=== PATIENT | female | born 1960 | race African-American/Black ===

== ENCOUNTER 2017-01-19 12:23 | Emergency (ER) | payer OTHER ==
[~2017-01-19] VITALS: Ht 175.3 cm; Wt 104.3 kg
[~2017-01-19 12:23] MED LIST: ACETAMINOPHEN-1 EAC1 ORAL; AMLODIPINE BESYL5 MG PO; AVONEX; FERROUS SULFAT325 MG ORAL; FERROUS SULFAT325 MG PO; IBUPROFEN600 MG ORAL; KENALOG 0.1% CR15 GM APPLIC; MACROBID 100 M100 MG PO; NAPROSYN500 M1 ORAL; NEX; NKM; PREDNISONE20 MG ORAL; PREDNISONE20 MG PO
[2017-01-19 12:40] VITALS: BP 132/85
[2017-01-19 12:45] VITALS: BP 132/85
[2017-01-19] MEDS ORDERED: KENALOG 0.5% CR15 GM APPLIC (12:48)
--- NOTE | 2017-01-19 13:40 | Emergency Room Report ---
History of Present Illness General Chief Complaint: Skin Rash/Abscess Source: Patient Present Illness HPI The patient is a 56-year-old female presenting with a rash to the right lower leg which began 3 days prior. The patient states that she has been experiencing itching to this location and denies any pain. The patient has used Benadryl and [id number] hydrocortisone lotion which has helped. The patient states she developed a similar rash previously and was successfully treated with prescription lotion which she does not remember. The patient denies using any new products such as soaps, detergents, or clothing. Patient denies ingesting any new foods. Patient denies any known allergies. The pt denies any other symptoms such as N, V, F, chills, CP, SOB, edema, numbness/tingling Allergies: Coded Allergies: NO KNOWN ALLERGIES (Unverified Allergy, Unknown, 10/17/15) Patient History Past Medical History: see triage record Pertinent Family History: none Reviewed Nursing Documentation: PMH: Agreed, PSxH: Agreed Nursing Documentation-PMH Past Medical History: No History, Except For Hx Hypertension: Yes Hx Diabetes: Yes Hx Neurological Problems: Yes - M.S. Hx Multiple Sclerosis: Yes Review of Systems All Other Systems: negative except mentioned in HPI Physical Exam Vital Signs Date Time Temp Pulse Resp B/P Pulse Ox O2 Delivery O2 Flow Rate FiO2 01/19/17 12:34 97.9 77 18 132/85 98 Room Air Sp02 EP Interpretation: reviewed, normal Head: normocephalic, atraumatic Eyes: bilateral eye PERRL, bilateral eye normal inspection ENT: hearing grossly normal, normal pharynx, no angioedema, normal voice Musculoskeletal: digits/nails normal, normal range of motion, no calf tenderness Neurologic: alert, oriented x3, responsive, motor strength/tone normal, sensory intact, speech normal Psychiatric: judgement/insight normal, memory normal, mood/affect normal, no suicidal/homicidal ideation Skin: rash - R lower leg: there is a 8cm macular erythematous rashover the distal tibia Lymphatic: no adenopathy Medical Decision Making PA Attestation Dr. Garcia is my supervising physician. Patient management was discussed with my supervising physician Diagnostic Impression: Primary Impression: Dermatitis ER Course The patient is a 56-year-old female presenting with a rash to the right lower leg which began 3 days prior. Ddx considered include but not limited to insect bite, contact dermatitis, eczema, cellulitis PE: vitals WNL. NAD R lower leg: there is a 8cm macular erythematous rash over the distal tibia. Non tender. No edema. Skin intact. SILT. Not hot to touch. The patient will be treated for dermatitis with a prescription for triamcinolone and needs to followup with PMD. ER precautions are given Last Vital Signs Date Time Temp Pulse Resp B/P Pulse Ox O2 Delivery O2 Flow Rate FiO2 01/19/17 12:45 97.9 18 132/85 98 Room Air 01/19/17 12:34 77 Status: improved Disposition: HOME, SELF-CARE Condition: Improved Scripts Triamcinolone Acet (Triamcinolone Acetonide) 15 Gm Cream..g. 15 GM APPLIC TID, #15 GM Prov: MARBELLA HERRON 01/19/17 Referrals: [facility],REFERRING (PCP) Patient Instructions: Rash Additional Instructions: I discussed my findings with the patient. All questions and concerns have been answered. Treatment and medication compliance have been addressed. I advised the patient that they need to follow up with PMD in 3-5 days. Return to ED if symptoms worsen, new symptoms arise, or if needed for any reason. Patient verbalized understanding of discharge instructions. MARBELLA HERRON Jan 19, 2017 13:40
== END 2017-01-19 13:06 | disposition home or self-care (01) ==
LOC: EMR 12:35
DX: L30.9 Dermatitis, unspecified (principal); I10 Essential (primary) hypertension; E11.9 Type 2 diabetes mellitus without complications; G35 Multiple sclerosis
CPT/HCPCS: 99283

== ENCOUNTER 2017-08-30 15:35 | Emergency (ER) | payer OTHER ==
[~2017-08-30] VITALS: Ht 162.6 cm; Wt 86.2 kg
[~2017-08-30 15:35] MED LIST changes: +KENALOG 0.5% CR15 GM APPLIC
--- NOTE | 2017-08-30 16:05 | Emergency Room Report ---
History of Present Illness General Chief Complaint: Back Pain-No Injury Present Illness HPI 56-year-old female presents to the emergency department complaining of 6/10 in severity low back pain in addition to bilateral leg pain and progressive weakness x1 month. Patient states low back pain times one day. Patient states that she was previously prescribed gabapentin for her pain and that recent neurologist appointment she was given a prescription for Avonex however she was unable to fill her medication because she lost her prescription. Patient is requesting refill of her medications in addition to her newest medication. Patient denies fevers, chills, trauma, fall. Patient denies blurry vision, eye pain, or changes in vision. Patient states that she has seen an wet process miller head recently. PT. reports that she is ambulatory however unsteady and often uses a walker at home, pt. states her walker is broken and would like a replacement. Denies numbness tingling or loss of sensation or gross motor movements of the extremities, incontinence of bowel or bladder. Denies CP, Palpitations, LOC, AMS, dizziness, Changes in Vision, Sensation, paresthesias, or a sudden severe headache. Allergies: Coded Allergies: NO KNOWN ALLERGIES (Unverified Allergy, Unknown, 10/17/15) Patient History Past Medical History: see triage record Past Surgical History: none Pertinent Family History: none Now: No Reviewed Nursing Documentation: PMH: Agreed, PSxH: Agreed Nursing Documentation-PMH Hx Hypertension: Yes Hx Diabetes: Yes Hx Multiple Sclerosis: Yes Review of Systems All Other Systems: negative except mentioned in HPI Physical Exam Vital Signs Date Time Temp Pulse Resp B/P (MAP) Pulse Ox O2 Delivery O2 Flow Rate FiO2 08/30/17 15:31 97.9 72 16 136/73 98 Room Air Sp02 EP Interpretation: reviewed, normal General Appearance: no apparent distress, alert, GCS 15, non-toxic, Chronically Ill Head: normocephalic, atraumatic Eyes: bilateral eye normal inspection, bilateral eye PERRL, bilateral eye other - obviosu strabismus of the left eye, EOMI ENT: hearing grossly normal, normal pharynx, no angioedema, normal voice Neck: full range of motion, no meningismus, no bony tend, supple/symm/no masses Respiratory: lungs clear, normal breath sounds, speaking full sentences Cardiovascular #1: regular rate, rhythm, normal capillary refill Cardiovascular #2: 2+ dorsalis pedis (R), 2+ dorsalis pedis (L) Gastrointestinal: non tender, soft, no guarding Musculoskeletal: back normal, gait/station normal - unbalanced gait, normal range of motion, non-tender Neurologic: alert, oriented x3, responsive, motor strength/tone normal, sensory intact, speech normal, no pronator Skin: normal color, no rash, warm/dry, well hydrated Medical Decision Making PA Attestation Dr. Montalvo is my supervising Physician whom patient management has been discussed with. Diagnostic Impression: Primary Impression: Medication refill Additional Impression: History of multiple sclerosis ER Course 56-year-old female presents to the emergency department complaining of 6/10 in severity low back pain in addition to bilateral-lateral thigh/leg pain and progressive weakness x1 month. Patient states low back pain times one day. Patient states that she was previously prescribed gabapentin for her pain and that recent neurologist appointment she was given a prescription for Avonex however she was unable to fill her medication because she lost her prescription. Patient is requesting refill of her medications in addition to her newest medication. Patient denies fevers, chills, trauma, fall. Patient denies blurry vision, eye pain, or changes in vision. Patient states that she has seen an wet process miller head recently. PT. reports that she is ambulatory however unsteady and often uses a walker at home, pt. states her walker is broken and would like a replacement. Denies numbness tingling or loss of sensation or gross motor movements of the extremities, incontinence of bowel or bladder. Denies CP, Palpitations, LOC, AMS, dizziness, Changes in Vision, Sensation, paresthesias, or a sudden severe headache. Ddx considered but are not limited to: drug seeking, OD, MS relapse, medication non-compliance just to name a few. Vital signs: are WNL, pt. is afebrile H&PE are most consistent with need for medication refill, Hx of MS Relapsing- Remitting ORDERS: none required at this time, the diagnosis is clinical ED INTERVENTIONS: -Prednisone PO -Gabapentin PO Discussed with the patient that for a the knots that is his specialty medication that requires close monitoring of her LFTs and that she needs to consult Neurology specialist to have refill of this medication. Also d/w pt. that this medication requires titration initiation, and that this needs to be managed by her Neurologist. Patient is given ED return precautions for worsening or new symptoms. Patient is stable for close outpatient followup with her neurologist. DISCHARGE: At this time pt. is stable for d/c to home. Will provide printed patient care instructions, and any necessary prescriptions. Care plan and follow up instructions have been discussed with the patient prior to discharge. Last Vital Signs Date Time Temp Pulse Resp B/P (MAP) Pulse Ox O2 Delivery O2 Flow Rate FiO2 08/30/17 15:31 97.9 72 16 136/73 98 Room Air Disposition: HOME, SELF-CARE Condition: Stable Scripts Gabapentin* (NEURONTIN*) 100 Mg Capsule 200 MG ORAL THREE TIMES A DAY for 5 Days, #30 CAP Prov: Adelina Valderrama 08/30/17 Prednisone* (PREDNISONE*) 50 Mg Tablet 50 MG ORAL DAILY for 5 Days, #5 TAB 0 Refills Prov: Adelina Valderrama 08/30/17 Patient Instructions: Medicine Refill at the Emergency Department Additional Instructions: Take medications as directed. Follow up with your Neurologist in 3 days, even if your symptoms have resolved. Return sooner to ED if new symptoms occur, or current symptoms become worse. Do not drink alcohol, drive, or operate heavy machinery while taking Gabapentin as this may cause drowsiness. - Please note that this Emergency Department Report was dictated using [employer] liaison technology software, occasionally this can lead to erroneous entry secondary to interpretation by the dictation equipment. Adelina Valderrama Aug 30, 2017 16:05
[2017-08-30] MEDS ORDERED: NEURONTIN100 MG ORAL (16:31)
[2017-08-30] MEDS ORDERED: PREDNISONE50 MG ORAL (16:31)
[2017-08-30 16:47] VITALS: BP 139/81
== END 2017-08-30 17:14 | disposition home or self-care (01) ==
LOC: EDBD 15:35 → EMR 16:08
DX: G35 Multiple sclerosis (principal); Z76.0 Encounter for issue of repeat prescription; I10 Essential (primary) hypertension; E11.9 Type 2 diabetes mellitus without complications
CPT/HCPCS: 99284

== ENCOUNTER 2018-02-20 19:36 | Emergency (ER) | payer OTHER ==
[~2018-02-20] VITALS: Ht 170.2 cm; Wt 95.3 kg
[~2018-02-20 19:36] MED LIST changes: +NEURONTIN100 MG ORAL; +PREDNISONE50 MG ORAL
[2018-02-20 20:00] VITALS: BP 156/92
[2018-02-20] MEDS ORDERED: Dexamethasone 4mg/ml vial IVP ONE (20:15)
[2018-02-20] MEDS ORDERED: cefTRIAXone 1 GM in NS 55 ML IVPB ONE (20:30)
[2018-02-20 20:50] LABS: EOSINOPHILS % (AUTO) 0.6 % (0.0-3.0); HEMATOCRIT 41.1 % (37.0-47.0); HEMOGLOBIN 13.8 G/DL (12.0-16.0); LYMPHOCYTES % (AUTO) 16.1 % (20.0-45.0); MEAN CORPUSCULAR VOLUME 88 FL (80-99); MONOCYTES % (AUTO) 4.9 % (1.0-10.0); NEUTROPHILS % (AUTO) 77.5 % (45.0-75.0); PLATELET COUNT 171 K/UL (150-450); RED BLOOD COUNT 4.67 M/UL (4.20-5.40); RED CELL DISTRIBUTION WIDTH 11.4 % (11.6-14.8); WHITE BLOOD COUNT 11.7 K/UL (4.8-10.8)
[2018-02-20 21:04] LABS: APPEARANCE,URINE SLIGHTLY CLOUDY; BILIRUBIN, URINE NEGATIVE (NEGATIVE); COLOR,URINE PALE YELLOW; GLUCOSE, URINE (UA) NEGATIVE (NEGATIVE); KETONES,URINE NEGATIVE (NEGATIVE); LEUKOCYTE ESTERASE ,URINE 2+ (NEGATIVE); NITRITE,URINE POSITIVE (NEGATIVE); PH,URINE 6 (4.5-8.0); PROTEIN,URINE NEGATIVE (NEGATIVE); UROBILINOGEN,URINE NORMAL MG/DL (0.0-1.0)
[2018-02-20 21:06] LABS: ANION GAP 9 mmol/L (5-15); BLOOD UREA NITROGEN 12 mg/dL (7-18); CALCIUM 9.2 MG/DL (8.5-10.1); CARBON DIOXIDE 29 MMOL/L (21-32); CHLORIDE 102 MMOL/L (98-107); CREATININE 0.9 MG/DL (0.55-1.30); POTASSIUM 3.7 MMOL/L (3.5-5.1); SODIUM 140 MMOL/L (136-145)
[2018-02-20 21:17] LABS: ALANINE AMINOTRANSFERASE 14 U/L (12-78); ALBUMIN/GLOBULIN RATIO 0.9 (1.0-2.7); ALKALINE PHOSPHATASE 121 U/L (46-116); ASPARTATE AMINO TRANSFERASE 18 U/L (15-37); BILIRUBIN,TOTAL 1.2 MG/DL (0.2-1.0)
[2018-02-20 21:20] LABS: BILIRUBIN,DIRECT 0.2 MG/DL (0.0-0.3)
--- NOTE | 2018-02-20 21:42 | Emergency Room Report ---
History of Present Illness General Chief Complaint: Generalized Weakness Source: Patient Present Illness HPI Patient is a 57-year-old female who presented after increased left-sided weakness. Patient prior history of multiple sclerosis. Patient reports having increased sore throat. Patient stated that she had been having increased difficulty moving her left lower extremity. The patient had not been on any disease modifying agents. Patient had been having chronic diplopia. Allergies: Coded Allergies: NO KNOWN ALLERGIES (Unverified Allergy, Unknown, 10/17/15) CITRUS AND DERIVATIVES (Verified Adverse Reaction, Unknown, 02/20/18) acid reflux and mucus increased production Patient History Past Medical History: see triage record Last Menstrual Period: n/a Reviewed Nursing Documentation: PMH: Agreed; PSxH: Agreed Nursing Documentation-PMH Hx Hypertension: Yes Hx Diabetes: Yes Hx Multiple Sclerosis: Yes Review of Systems All Other Systems: negative except mentioned in HPI Physical Exam Vital Signs Date Time Temp Pulse Resp B/P (MAP) Pulse Ox O2 Delivery O2 Flow Rate FiO2 02/20/18 19:39 98.4 82 16 156/92 100 Room Air 98.4 Sp02 EP Interpretation: reviewed, normal General Appearance: normal inspection, well appearing, no apparent distress, alert, obese, Chronically Ill Head: atraumatic Eyes: bilateral eye other - disconjugate gaze ENT: normal ENT inspection, hearing grossly normal, normal voice, pharyngeal erythema Neck: normal inspection, supple, no bony tend, limited range of motion Respiratory: normal inspection, lungs clear, normal breath sounds, no respiratory distress, no retraction, no wheezing Cardiovascular #1: regular rate, rhythm, no edema Gastrointestinal: normal inspection, normal bowel sounds, non tender, soft, no guarding, no hernia Genitourinary: no CVA tenderness Musculoskeletal: normal inspection, back normal, normal range of motion Neurologic: normal inspection, alert, oriented x3, responsive, speech normal, motor weakness - left side hand and leg Psychiatric: normal inspection, judgement/insight normal, mood/affect normal Skin: normal inspection, normal color, no rash Medical Decision Making Diagnostic Impression: Primary Impression: Multiple sclerosis exacerbation Additional Impression: UTI (urinary tract infection) ER Course Patient presented for weakness. Differential diagnoses included was not limited to multiple sclerosis exacerbation, CVA, electrolyte abnormality, urinary infection among others.Because of complexity of patient's case laboratory testing and imaging studies were ordered. Laboratory testing show evidence of urinary infection. The patient was noted to have normal white blood count. Patient was given IV steroids. Patient started on IV antibiotics for urinary infection.The due to patient's new weakness patient will be admitted for further evaluation and treatment. Labs Test 02/20/18 20:30 White Blood Count 11.7 K/UL (4.8-10.8) Red Blood Count 4.67 M/UL (4.20-5.40) Hemoglobin 13.8 G/DL (12.0-16.0) Hematocrit 41.1 % (37.0-47.0) Mean Corpuscular Volume 88 FL (80-99) Mean Corpuscular Hemoglobin 29.5 PG (27.0-31.0) Mean Corpuscular Hemoglobin Concent 33.5 G/DL (32.0-36.0) Red Cell Distribution Width 11.4 % (11.6-14.8) Platelet Count 171 K/UL (150-450) Mean Platelet Volume 7.6 FL (6.5-10.1) Neutrophils (%) (Auto) 77.5 % (45.0-75.0) Lymphocytes (%) (Auto) 16.1 % (20.0-45.0) Monocytes (%) (Auto) 4.9 % (1.0-10.0) Eosinophils (%) (Auto) 0.6 % (0.0-3.0) Basophils (%) (Auto) 1.0 % (0.0-2.0) Urine Color Pale yellow Urine Appearance Slightly cloudy Urine pH 6 (4.5-8.0) Urine Specific [place] 1.015 (1.005-1.035) Urine Protein Negative (NEGATIVE) Urine Glucose (UA) Negative (NEGATIVE) Urine Ketones Negative (NEGATIVE) Urine Occult Blood 4+ (NEGATIVE) Urine Nitrite Positive (NEGATIVE) Urine Bilirubin Negative (NEGATIVE) Urine Urobilinogen Normal MG/DL (0.0-1.0) Urine Leukocyte Esterase 2+ (NEGATIVE) Urine RBC 2-4 /HPF (0 - 2) Urine WBC 5-10 /HPF (0 - 2) Urine Squamous Epithelial Cells Few /LPF (NONE/OCC) Urine Bacteria Many /HPF (NONE) Sodium Level 140 MMOL/L (136-145) Potassium Level 3.7 MMOL/L (3.5-5.1) Chloride Level 102 MMOL/L (98-107) Carbon Dioxide Level 29 MMOL/L (21-32) Anion Gap 9 mmol/L (5-15) Blood Urea Nitrogen 12 mg/dL (7-18) Creatinine 0.9 MG/DL (0.55-1.30) Estimat Glomerular Filtration Rate > 60 mL/min (>60) Glucose Level 95 MG/DL (74-106) Calcium Level 9.2 MG/DL (8.5-10.1) Total Bilirubin 1.2 MG/DL (0.2-1.0) Direct Bilirubin 0.2 MG/DL (0.0-0.3) Aspartate Amino Transf (AST/SGOT) 18 U/L (15-37) Alanine Aminotransferase (ALT/SGPT) 14 U/L (12-78) Alkaline Phosphatase 121 U/L (46-116) Total Protein 8.4 G/DL (6.4-8.2) Albumin 4.0 G/DL (3.4-5.0) Globulin 4.4 g/dL Albumin/Globulin Ratio 0.9 (1.0-2.7) EKG Diagnostic Results Rate: normal - 75 Rhythm: NSR ST Segments: no acute changes Rhythm Strip Diag. Results EP Interpretation: yes Rhythm: NSR, no PVC's, no ectopy Last Vital Signs Date Time Temp Pulse Resp B/P (MAP) Pulse Ox O2 Delivery O2 Flow Rate FiO2 02/20/18 19:39 98.4 82 16 156/92 100 Room Air 98.4 Status: unchanged Disposition: ADMITTED INPATIENT Condition: Serious Referrals: NON PHYSICIAN (PCP) Christopher Spain MD February 20, 2018 21:42
[2018-02-20 22:00] VITALS: BP 150/90
[2018-02-20] MEDS ORDERED: ALLEGRA-D 12 H1 EACH PO (22:08)
[2018-02-20] MEDS ORDERED: FLONASE ALLERG9.9 ML NS (22:08)
[2018-02-20 23:49] VITALS: BP 152/83
[2018-02-21 00:39] VITALS: BP 152/83
--- NOTE | 2018-02-25 15:01 | Cardiology Report ---
APPROVED REPORT EKG Measurement Heart [id number] Normal sinus rhythm Normal ECG
== END 2018-02-21 00:45 | disposition other institution (70) ==
LOC: EMR 20:58
DX: G35 Multiple sclerosis (principal); N39.0 Urinary tract infection, site not specified; E11.9 Type 2 diabetes mellitus without complications
CPT/HCPCS: 36415; 80053; 81001; 82248; 82962; 85025; 87086; 87181; 93005; 99285; J0696; J1100

== ENCOUNTER 2018-07-04 16:36 | Emergency (ER) | payer OTHER ==
[~2018-07-04] VITALS: Ht 175.3 cm; Wt 97.5 kg
[~2018-07-04 16:36] MED LIST changes: +ALLEGRA-D 12 H1 EACH PO; +FLONASE ALLERG9.9 ML NS
[2018-07-04 16:55] VITALS: BP 132/83
--- NOTE | 2018-07-04 17:11 | Emergency Room Report ---
History of Present Illness General Chief Complaint: General Complaint Source: Patient Present Illness HPI 57-year-old female presents to the emergency department with 2 different complaints. Patient reports increased lacrimation and scratching sensation in the right eye along with rhinorrhea. Patient also is reporting body aches/ cramping generalized that she rates a 7 out of 10 in severity. Patient reports history of MS. Denies: Pain, Discharge other than tearing, Redness, Loss of vision, Floaters, Flashing lights, Diplopia/blurry vision. Denies headache. Allergies: Coded Allergies: NO KNOWN ALLERGIES (Unverified Allergy, Unknown, 10/17/15) CITRUS AND DERIVATIVES (Verified Adverse Reaction, Unknown, 02/20/18) acid reflux and mucus increased production Patient History Past Medical History: see triage record Past Surgical History: none Pertinent Family History: none Last Menstrual Period: na Reviewed Nursing Documentation: PMH: Agreed; PSxH: Agreed Nursing Documentation-PMH Past Medical History: No History, Except For Hx Hypertension: Yes Hx Diabetes: Yes Hx Multiple Sclerosis: Yes Review of Systems All Other Systems: negative except mentioned in HPI Physical Exam Vital Signs Date Time Temp Pulse Resp B/P (MAP) Pulse Ox O2 Delivery O2 Flow Rate FiO2 07/04/18 16:39 97.9 67 18 149/91 98 Room Air 97.9 Sp02 EP Interpretation: reviewed, normal General Appearance: no apparent distress, alert, GCS 15, non-toxic Head: normocephalic, atraumatic Eyes: right eye fluoroscene uptake, right eye other - increased lacrimation , no purulent d/c, no visualized fb on lid-flip, ; bilateral eye normal inspection , bilateral eye PERRL ENT: hearing grossly normal, normal voice Neck: full range of motion Respiratory: chest non-tender, lungs clear, normal breath sounds, speaking full sentences Cardiovascular #1: regular rate, rhythm Gastrointestinal: non tender, soft Rectal: deferred Genitourinary: normal inspection Musculoskeletal: back normal, gait/station normal, normal range of motion, non- tender Neurologic: alert, oriented x3, responsive, motor strength/tone normal, sensory intact, normal gait - with walker assistance, speech normal, grossly normal Psychiatric: judgement/insight normal Skin: normal color, no rash, warm/dry, well hydrated Medical Decision Making PA Attestation Dr. chávez is my supervising Physician whom patient management has been discussed with. Diagnostic Impression: Primary Impression: Corneal abrasion, right Qualified Codes: S05.01XA - Injury of conjunctiva and corneal abrasion without foreign body, right eye, initial encounter Additional Impression: History of multiple sclerosis ER Course 57-year-old female presents to the emergency department with 2 different complaints. Patient reports increased lacrimation and scratching sensation in the right eye along with rhinorrhea. Patient also is reporting body aches/ cramping generalized that she rates a 7 out of 10 in severity. Patient reports history of MS. Denies: Pain, Discharge other than tearing, Redness, Loss of vision, Floaters, Flashing lights, Diplopia/blurry vision. Denies headache. Ddx considered but are not limited to Eye fb, corneal abrasion, atypical KOTHARI, rhinitis, MS flare just to name a few. Vital signs: are WNL, pt. is afebrile H&PE are most consistent with right eye corneal abrasion, and MS flare- mild. - Fluorescein uptake and positive relief with tetracaine drops. ORDERS: none required at this time, the diagnosis is clinical ED INTERVENTIONS: -IV NS 1000cc -Prednisone 60mg PO - D/w pt. treatment plan of antibiotic eye drops, opth-follow up, and also short course of steroids and muscle relaxers for MS flare. pt. given ED return precautions for worsening or new symptoms. DISCHARGE: At this time pt. is stable for d/c to home. Will provide printed patient care instructions, and any necessary prescriptions. Care plan and follow up instructions have been discussed with the patient prior to discharge. Last Vital Signs Date Time Temp Pulse Resp B/P (MAP) Pulse Ox O2 Delivery O2 Flow Rate FiO2 07/04/18 16:39 97.9 67 18 149/91 98 Room Air 97.9 Disposition: HOME, SELF-CARE Condition: Stable Scripts Methocarbamol* (ROBAXIN-750*) 750 Mg Tablet 750 MG PO TID, #21 TAB 0 Refills Prov: Adelina Valderrama 07/04/18 Prednisone* (PREDNISONE*) 20 Mg Tablet 40 MG ORAL DAILY for 5 Days, #10 TAB Prov: Adelina Valderrama 07/04/18 Ofloxacin (OCUFLOX) 5 Ml Drops 2 DRP OP BID for 5 Days, #5 ML Prov: Adelina Valderrama 07/04/18 Patient Instructions: Corneal Abrasion, [id number] Additional Instructions: Take medications as directed. Follow up with [facility] in 2-3 days. Follow up with a Primary Care Provider in 3-5 days, even if your symptoms have resolved. --Please review list of primary care clinics, if you do not already have a primary care provider Return sooner to ED if new symptoms occur, or current symptoms become worse. Do not drink alcohol, drive, or operate heavy machinery while taking Robaxin ( Muscle Relaxers) as this may cause drowsiness. - Please note that this Emergency Department Report was dictated using [employer] executive communications technology software, occasionally this can lead to erroneous entry secondary to interpretation by the dictation equipment. Adelina Valderrama Jul 04, 2018 17:11
[2018-07-04] MEDS ORDERED: Tetracaine 0.5% Opth 4ml Soln RIGHT EYE ONE (17:15)
[2018-07-04] MEDS ORDERED: Fluorescein Strips RIGHT EYE ONE (17:15)
[2018-07-04] MEDS ORDERED: PREDNISONE20 MG ORAL (17:43)
[2018-07-04] MEDS ORDERED: ROBAXIN-750750 MG PO (17:43)
[2018-07-04] MEDS ORDERED: OCUFLOX5 ML OP (17:43)
[2018-07-04 18:50] VITALS: BP 155/86
== END 2018-07-04 18:58 | disposition home or self-care (01) ==
LOC: EMR 17:00
DX: S05.01XA Injury of conjunctiva and corneal abrasion without foreign body, right eye, initial encounter (principal); I10 Essential (primary) hypertension; G35 Multiple sclerosis; X58.XXXA Exposure to other specified factors, initial encounter; Y93.9 Activity, unspecified; Y92.9 Unspecified place or not applicable; Y99.9 Unspecified external cause status
CPT/HCPCS: 96360; 99284; J7512

== ENCOUNTER 2019-06-02 17:32 | Emergency (ER) | payer OTHER ==
[~2019-06-02] VITALS: Ht 175.3 cm; Wt 97.5 kg
[~2019-06-02 17:32] MED LIST changes: +OCUFLOX5 ML OP; +ROBAXIN-750750 MG PO
[2019-06-02 17:38] VITALS: BP 151/80
[2019-06-02 18:50] LABS: BASOPHILS % (AUTO) 1.6 % (0.0-2.0); EOSINOPHILS % (AUTO) 2.8 % (0.0-3.0); HEMATOCRIT 36.5 % (37.0-47.0); HEMOGLOBIN 12.6 G/DL (12.0-16.0); LYMPHOCYTES % (AUTO) 31.7 % (20.0-45.0); MEAN CORPUSCULAR VOLUME 87 FL (80-99); MONOCYTES % (AUTO) 8.7 % (1.0-10.0); NEUTROPHILS % (AUTO) 55.2 % (45.0-75.0); PLATELET COUNT 197 K/UL (150-450); RED BLOOD COUNT 4.18 M/UL (4.20-5.40); WHITE BLOOD COUNT 5.6 K/UL (4.8-10.8)
[2019-06-02 19:02] LABS: ANION GAP 8 mmol/L (5-15); BLOOD UREA NITROGEN 10 mg/dL (7-18); CALCIUM 9.3 MG/DL (8.5-10.1); CARBON DIOXIDE 27 MMOL/L (21-32); CHLORIDE 105 MMOL/L (98-107); CREATININE 0.8 MG/DL (0.55-1.30); POTASSIUM 3.6 MMOL/L (3.5-5.1); SODIUM 140 MMOL/L (136-145)
[2019-06-02 19:09] LABS: ALANINE AMINOTRANSFERASE 8 U/L (12-78); ALBUMIN 3.8 G/DL (3.4-5.0); ALKALINE PHOSPHATASE 93 U/L (46-116); ASPARTATE AMINO TRANSFERASE 18 U/L (15-37); BILIRUBIN,TOTAL 0.8 MG/DL (0.2-1.0)
[2019-06-02] MEDS ORDERED: methylPREDNISolone Sod Succ 1,000 MG in NS 275 ML IVPB ONE (19:45)
[2019-06-02] MEDS ORDERED: Ketorolac 30mg Inj IV ONE (20:00)
[2019-06-02 20:11] LABS: APPEARANCE,URINE CLEAR; BILIRUBIN, URINE NEGATIVE (NEGATIVE); GLUCOSE, URINE (UA) NEGATIVE (NEGATIVE); KETONES,URINE NEGATIVE (NEGATIVE); LEUKOCYTE ESTERASE ,URINE NEGATIVE (NEGATIVE); NITRITE,URINE NEGATIVE (NEGATIVE); PH,URINE 6 (4.5-8.0); PROTEIN,URINE NEGATIVE (NEGATIVE); UROBILINOGEN,URINE NORMAL MG/DL (0.0-1.0)
[2019-06-02 20:12] LABS: COLOR,URINE YELLOW
--- NOTE | 2019-06-02 20:35 | Emergency Room Report ---
History of Present Illness General Chief Complaint: Pain Source: Patient Present Illness HPI 58-year-old female presents to the ED c/o progressive generalized weakness primarily in the LE's x 2 weeks. has follow up appt. with her PCP on the ( in two days) pt. also reports muscle cramps/spasms intermittently and sharp 8/ 10 in severity pain in the right armpit when washing her hands or moving her right hand/wrist in a circular/twisting motion. Denies trauma or fall. Denies paresthesias. This patient has a history of multiple sclerosis, rheumatoid arthritis as well as osteoarthritis, high blood pressure and diabetes. Denies nausea, vomiting, fevers, chills. She denies saddle anesthesia, dizziness, urinary retention or incontinence. Patient denies weakness in her grasp of the affected right upper arm she reports her weakness is primary the in the lower extremities she states that her primary physician is aware of this weakness and has been doing labs and imaging she has follow-up appointment already scheduled. Patient reports mild slow progression of her symptoms she states that the sharp pain in the right axillary area causing the 8/10 in severity pain is her primary concern today, but she believes her symptoms may all be related. She states she has had weakness with muscle cramps in body aches in the past during MS exacerbations. Patient reports that she usually has good response to IV steroid administration. Denies cough, shortness of breath, dysuria, hematuria urinary frequency. Patient denies suspicion for any infection at this time. Denies rashes, swollen tender lymph nodes or fluctuant lumps. Allergies: Coded Allergies: NO KNOWN ALLERGIES (Unverified Allergy, Unknown, 10/17/15) CITRUS AND DERIVATIVES (Verified Adverse Reaction, Unknown, 02/20/18) acid reflux and mucus increased production Patient History Past Medical History: see triage record, DM, HTN, other - MS, arthritis, Past Surgical History: none Pertinent Family History: none Now: No Reviewed Nursing Documentation: PMH: Agreed; PSxH: Agreed Nursing Documentation-PMH Past Medical History: No History, Except For Hx Hypertension: Yes Hx Diabetes: Yes Hx Multiple Sclerosis: Yes Review of Systems All Other Systems: negative except mentioned in HPI Physical Exam Vital Signs Date Time Temp Pulse Resp B/P (MAP) Pulse Ox O2 Delivery O2 Flow Rate FiO2 06/02/19 17:38 98.2 64 18 151/80 (103) 98 Room Air Sp02 EP Interpretation: reviewed, normal General Appearance: no apparent distress, alert, GCS 15, non-toxic, lethargic Head: normocephalic, atraumatic Eyes: bilateral eye normal inspection, bilateral eye PERRL ENT: hearing grossly normal, normal voice Neck: full range of motion, no bony tend Respiratory: chest non-tender, lungs clear, normal breath sounds, no respiratory distress, no wheezing, speaking full sentences Cardiovascular #1: regular rate, rhythm, no edema, normal capillary refill Cardiovascular #2: 2+ radial (R), 2+ radial (L) Gastrointestinal: non tender, soft Genitourinary: normal inspection, no CVA tenderness Musculoskeletal: back normal, gait/station normal - Slow/lethargic. uses walker ., normal range of motion, non-tender - unable to illicit right axillary pain with palpation, ROM of the right shoulder, right elbow or right wrist. No swelling, obvious deformity or weakness. 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 Neurologic: alert, oriented x3, responsive, motor strength/tone normal - mild weakness/ decreased strength in LE's and UE's bilaterally. , sensory intact, speech normal, no pronator, distal neuro normal, other - no facial droop, grossly normal Psychiatric: judgement/insight normal Skin: no rash Lymphatic: no adenopathy Medical Decision Making PA Attestation Dr. Barrios Is my supervising Physician whom patient management has been discussed with. Diagnostic Impression: Primary Impression: Multiple sclerosis exacerbation Additional Impression: Shoulder pain, right Qualified Codes: M25.511 - Pain in right shoulder ER Course 58-year-old female presents to the ED c/o progressive generalized weakness primarily in the LE's x 2 weeks. has follow up appt. with her PCP on the ( in two days) pt. also reports muscle cramps/spasms intermittently and sharp 8/ 10 in severity pain in the right armpit when washing her hands or moving her right hand/wrist in a circular/twisting motion. Denies trauma or fall. Denies paresthesias. This patient has a history of multiple sclerosis, rheumatoid arthritis as well as osteoarthritis, high blood pressure and diabetes. Denies nausea, vomiting, fevers, chills. She denies saddle anesthesia, dizziness, urinary retention or incontinence. Patient denies weakness in her grasp of the affected right upper arm she reports her weakness is primary the in the lower extremities she states that her primary physician is aware of this weakness and has been doing labs and imaging she has follow-up appointment already scheduled. Patient reports mild slow progression of her symptoms she states that the sharp pain in the right axillary area causing the 8/10 in severity pain is her primary concern today, but she believes her symptoms may all be related. She states she has had weakness with muscle cramps in body aches in the past during MS exacerbations. Patient reports that she usually has good response to IV steroid administration. Denies cough, shortness of breath, dysuria, hematuria urinary frequency. Patient denies suspicion for any infection at this time. Denies rashes, swollen tender lymph nodes or fluctuant lumps. Ddx considered but are not limited to : MS, MG, Guillain [place], [place], drug intoxication, hypovolemia, infection, rhabdomyolysis, ETOH, CVA/TIA, NMS, CHF, Seizures, Cardiac outflow obstruction, QT-prolongation, Brugada, or Anemia just to name a few. Vital signs: are WNL, pt. is afebrile H&PE are most consistent with uncomplicated MS exacerbation in a patient that is in no acute distress and nontoxic in appearance. No obvious focal neurological deficits ORDERS: - CBC: WNL -CMP: WNL -UA: Most indicative of contamination: presence of equal amounts of bacteria and squamous cells, no elevation in inflammatory markers, nitrite negative. -EKbpm sinus atul ED INTERVENTIONS: - 1000mg Methylprednisolone IVPB in 250cc NS -I do not identify an emergent condition at this time. With current presentation , pt. is stable for close outpatient follow up and conservative treatment at her already scheduled appt with her PCP in 2 days. D/w pt. to return promptly to ED with worsening or new symptoms.- Pt. verbalizes' understanding and agreement with proposed treatment plan.proposed treatment plan. DISCHARGE: At this time pt. is stable for d/c to home. Will provide printed patient care instructions, and any necessary prescriptions. Care plan and follow up instructions have been discussed with the patient prior to discharge. Labs Test 06/02/19 18:34 06/02/19 19:40 White Blood Count 5.6 K/UL (4.8-10.8) Red Blood Count 4.18 M/UL (4.20-5.40) Hemoglobin 12.6 G/DL (12.0-16.0) Hematocrit 36.5 % (37.0-47.0) Mean Corpuscular Volume 87 FL (80-99) Mean Corpuscular Hemoglobin 30.1 PG (27.0-31.0) Mean Corpuscular Hemoglobin Concent 34.5 G/DL (32.0-36.0) Red Cell Distribution Width 11.0 % (11.6-14.8) Platelet Count 197 K/UL (150-450) Mean Platelet Volume 6.3 FL (6.5-10.1) Neutrophils (%) (Auto) 55.2 % (45.0-75.0) Lymphocytes (%) (Auto) 31.7 % (20.0-45.0) Monocytes (%) (Auto) 8.7 % (1.0-10.0) Eosinophils (%) (Auto) 2.8 % (0.0-3.0) Basophils (%) (Auto) 1.6 % (0.0-2.0) Sodium Level 140 MMOL/L (136-145) Potassium Level 3.6 MMOL/L (3.5-5.1) Chloride Level 105 MMOL/L (98-107) Carbon Dioxide Level 27 MMOL/L (21-32) Anion Gap 8 mmol/L (5-15) Blood Urea Nitrogen 10 mg/dL (7-18) Creatinine 0.8 MG/DL (0.55-1.30) Estimat Glomerular Filtration Rate > 60 mL/min (>60) Glucose Level 81 MG/DL (74-106) Calcium Level 9.3 MG/DL (8.5-10.1) Total Bilirubin 0.8 MG/DL (0.2-1.0) Aspartate Amino Transf (AST/SGOT) 18 U/L (15-37) Alanine Aminotransferase (ALT/SGPT) 8 U/L (12-78) Alkaline Phosphatase 93 U/L (46-116) Total Protein 7.6 G/DL (6.4-8.2) Albumin 3.8 G/DL (3.4-5.0) Globulin 3.8 g/dL Albumin/Globulin Ratio 1.0 (1.0-2.7) Urine Color Yellow Urine Appearance Clear Urine pH 6 (4.5-8.0) Urine Specific [place] 1.015 (1.005-1.035) Urine Protein Negative (NEGATIVE) Urine Glucose (UA) Negative (NEGATIVE) Urine Ketones Negative (NEGATIVE) Urine Blood 1+ (NEGATIVE) Urine Nitrite Negative (NEGATIVE) Urine Bilirubin Negative (NEGATIVE) Urine Urobilinogen Normal MG/DL (0.0-1.0) Urine Leukocyte Esterase Negative (NEGATIVE) Urine RBC 2-4 /HPF (0 - 2) Urine WBC 0-2 /HPF (0 - 2) Urine Squamous Epithelial Cells Occasional /LPF Urine Bacteria Occasional /HPF (NONE) EKG Diagnostic Results EP Interpretation: Dr. Barrios Rate: bradycardiac - 54bpm Rhythm: NSR ST Segments: no acute changes ASA given to the pt in ED: No PA Scribe Text This Interpretation was scribed by CHRISTINA Valderrama. Last Vital Signs Date Time Temp Pulse Resp B/P (MAP) Pulse Ox O2 Delivery O2 Flow Rate FiO2 06/02/19 17:38 98.2 68 18 151/80 98 Room Air Status: improved Disposition: HOME, SELF-CARE Condition: Stable Scripts Methocarbamol* (ROBAXIN*) 500 Mg Tablet 500 MG PO TID for 7 Days, #21 TAB 0 Refills Prov: Adelina Valderrama 06/02/19 Prednisone* (PREDNISONE*) 50 Mg Tablet 5 TAB ORAL BID for Acute MS Exacerbation MDD 500 for 2 Days, #20 TAB 0 Refills Take 5 (five) of the 50mg tablets Twice per day (am & pm) to reach a total of 500mg daily. Prov: Adelina Valderrama 06/02/19 Referrals: SULLY ALEJANDRE M.D. (PCP) Patient Instructions: Multiple Sclerosis, Radicular Pain, Weakness, Easy-to- Read Additional Instructions: Take medications as directed. Follow up with a Primary Care Provider and MS/ Neurological Specialist within 3-5 days, even if your symptoms have resolved. -- Return sooner to ED if new symptoms occur, or current symptoms become worse. - Please note that this Emergency Department Report was dictated using [employer] advisor technology software, occasionally this can lead to erroneous entry secondary to interpretation by the dictation equipment. Adelina Valderrama Jun 02, 2019 20:35
[2019-06-02] MEDS ORDERED: PREDNISONE50 MG ORAL (21:21)
[2019-06-02] MEDS ORDERED: ROBAXIN500 MG PO (21:21)
[2019-06-02 21:30] VITALS: BP 151/80
== END 2019-06-02 21:30 | disposition home or self-care (01) ==
LOC: EMR 18:09
DX: G35 Multiple sclerosis (principal); M25.511 Pain in right shoulder; I10 Essential (primary) hypertension; E11.9 Type 2 diabetes mellitus without complications; Z91.018 Allergy to other foods; M06.9 Rheumatoid arthritis, unspecified; M19.90 Unspecified osteoarthritis, unspecified site
CPT/HCPCS: 36415; 80053; 81003; 85025; 93005; 96365; 96375; 99284; J1885; J7050

== ENCOUNTER 2019-10-03 16:55 | Emergency (ER) | payer OTHER ==
[~2019-10-03] VITALS: Ht 175.3 cm; Wt 92.1 kg
[~2019-10-03 16:55] MED LIST changes: +ROBAXIN500 MG PO
[2019-10-03 17:20] VITALS: BP 114/75
--- NOTE | 2019-10-03 17:30 | NUR ---
ED Nurse Note: PT WALKED IN DUE TO LOW BACK PAIN. DENIES INJURY OR DYSURIA. PT DENIES TAKING ANY PAIN MEDICATIONS BUT HAS HX OF NEUROPATHY. STATES TINGLING SENSATION ON BLE. AAO 4 AND AMBULATES WITH HER WALKER.
--- NOTE | 2019-10-03 18:41 | Emergency Room Report ---
History of Present Illness General Chief Complaint: Back Pain-No Injury Source: Medical Record Present Illness HPI 58-year-old female presents to the emergency department complaining of 7 out of 10 severity midline low back pain that she states is an exacerbation of her DJD. Patient reports that she has an appointment on Saturday with supply specialist to discuss possible injections. Patient reports she has arthritis in bilateral knees that is exacerbated now as well. Patient states that she believes the change into the cold weather has exacerbated her symptoms. She denies trauma or fall she denies saddle anesthesia, urinary retention or urinary incontinence. Patient has history of multiple sclerosis. Patient states she has not taken any medication in an attempt to relieve her symptoms. She denies fevers, chills, night sweats or significant changes in weight. Lying completely flat exacerbates her pain. No other aggravating or relieving factors. Denies CP, Palpitations,SOB, Abdominal pain, Nausea or vomiting. Allergies: Coded Allergies: NO KNOWN ALLERGIES (Unverified Allergy, Unknown, 10/17/15) CITRUS AND DERIVATIVES (Verified Adverse Reaction, Unknown, 02/20/18) acid reflux and mucus increased production Patient History Past Medical History: see triage record Past Surgical History: none Pertinent Family History: none Now: No Reviewed Nursing Documentation: PMH: Agreed; PSxH: Agreed Nursing Documentation-PMH Past Medical History: No History, Except For Hx Hypertension: Yes Hx Diabetes: Yes Hx Multiple Sclerosis: Yes Review of Systems All Other Systems: negative except mentioned in HPI Physical Exam Vital Signs Date Time Temp Pulse Resp B/P (MAP) Pulse Ox O2 Delivery O2 Flow Rate FiO2 10/03/19 17:20 98.2 94 16 114/75 (88) 95 Room Air Medical Decision Making PA Attestation Dr. Spain is my supervising Physician whom patient management has been discussed with. Diagnostic Impression: Primary Impression: Exacerbation of chronic back pain Additional Impression: History of degenerative disc disease ER Course 58-year-old female presents to the emergency department complaining of 7 out of 10 severity midline low back pain that she states is an exacerbation of her DJD. Patient reports that she has an appointment on Saturday with supply specialist to discuss possible injections. Patient reports she has arthritis in bilateral knees that is exacerbated now as well. Patient states that she believes the change into the cold weather has exacerbated her symptoms. She denies trauma or fall she denies saddle anesthesia, urinary retention or urinary incontinence. Patient has history of multiple sclerosis. Patient states she has not taken any medication in an attempt to relieve her symptoms. She denies fevers, chills, night sweats or significant changes in weight. Lying completely flat exacerbates her pain. No other aggravating or relieving factors. Denies CP, Palpitations,SOB, Abdominal pain, Nausea or vomiting. Ddx considered: epidural abscess, fracture, sprain/strain, meningitis, spinal chord injury, sciatica, cauda equina, Pyelonephritis, renal calculi just to name a few. Vital signs reviewed and are WNL during ED visit. Pt. is afebrile with no signs of infection No new symptoms, and denies recent trauma. No saddle anesthesia noted, Pt. denies incontinence Neurovascular is intact ROM is limited due to pain * Mild Tenderness to palpation to paraspinal muscles of the lower back with midline tenderness. *Pt. describes pain today as moderate and radiates across the lower back. ORDERS: none warranted at this time. INTERVENTIONS: - lidoderm TP D/W Pt. that for further pain management is it recommended to consult PCP or a Chronic Pain management doctor. A provider who can safely prescribe controlled substances with close follow up. DISCHARGE: At this time pt. is stable for d/c to home. Will provide printed patient care instructions, and any necessary prescriptions. Care plan and follow up instructions have been discussed with the patient prior to discharge. Last Vital Signs Date Time Temp Pulse Resp B/P (MAP) Pulse Ox O2 Delivery O2 Flow Rate FiO2 10/03/19 17:20 98.2 94 16 114/75 95 Room Air Disposition: HOME, SELF-CARE Scripts Diclofenac Sodium (VOLTAREN) 100 Gm Gel..gram. 1 APPLIC TP TID, #100 GM Prov: Adelina Valderrama 10/03/19 Tramadol Hcl* (ULTRAM*) 50 Mg Tablet 50 MG ORAL Q6H PRN for For Pain, #12 TAB 0 Refills Prov: Adelina Valderrama 10/03/19 Patient Instructions: Chronic Back Pain, Degenerative Disk Disease Additional Instructions: Take medications as directed. Follow up with a Primary Care Provider in 3-5 days, even if your symptoms have resolved. --Please review list of primary care clinics, if you do not already have a primary care provider Return sooner to ED if new symptoms occur, or current symptoms become worse. Do not drink alcohol, drive, or operate heavy machinery while taking Tramadol as this may cause drowsiness. - Please note that this Emergency Department Report was dictated using [employer] clinical documentation specialist technology software, occasionally this can lead to erroneous entry secondary to interpretation by the dictation equipment. Adelina Valderrama Oct 03, 2019 18:41
[2019-10-03] MEDS ORDERED: TRAMADOL HCL50 MG ORAL (18:43)
[2019-10-03] MEDS ORDERED: VOLTAREN100 G1 TP (18:43)
[2019-10-03 18:58] VITALS: BP 125/78
--- NOTE | 2019-10-03 18:58 | NUR ---
ER DISCHARGE NOTE: Patient is cleared to be discharged per PA, pt is aox4, on room air, with stable vital signs. pt was given dc and prescription instructions, pt was able to verbalize understanding, pt id band removed. pt is able to ambulate with her walker. pt took all belongings.
== END 2019-10-03 18:58 | disposition home or self-care (01) ==
LOC: EMR 18:34
DX: M54.5 Low back pain (principal); G89.29 Other chronic pain; M17.0 Bilateral primary osteoarthritis of knee; G35 Multiple sclerosis; I10 Essential (primary) hypertension; E11.9 Type 2 diabetes mellitus without complications
CPT/HCPCS: 99282

== ENCOUNTER 2020-01-29 14:21 | Emergency (ER) | payer OTHER ==
[~2020-01-29] VITALS: Ht 175.3 cm; Wt 90.7 kg
[~2020-01-29 14:21] MED LIST changes: +TRAMADOL HCL50 MG ORAL; +VOLTAREN100 G1 TP
--- NOTE | 2020-01-29 14:30 | NUR ---
ED Nurse Note: Pt ambulated to ED from home d/t "MS flare up". Pt is AOx4, calm and cooperative, pt complains of generalized body weakness. Pt denies any chest pain. Placed on bed and gown; hooked to shuttle buggy operator. VSS, on RA, afebrile on triage. Will continue to monitor.
[2020-01-29 14:40] VITALS: BP 132/86
--- NOTE | 2020-01-29 14:53 | Emergency Room Report ---
History of Present Illness General Chief Complaint: Generalized Weakness Source: Patient Present Illness HPI Patient presents with complaints of initially some general weakness patient however also complains of right lower back pain patient has had fairly significant and chronic back pain and feels that this is similar to her previous Patient has significant scoliosis Denies any chest pain or shortness of breath denies any fever denies any vomiting or diarrhea Denies any rash Allergies: Coded Allergies: NO KNOWN ALLERGIES (Unverified Allergy, Unknown, 10/17/15) CITRUS AND DERIVATIVES (Verified Adverse Reaction, Unknown, 02/20/18) acid reflux and mucus increased production COVID-19 Screening Contact w/high risk pt: No Recent Travel to affected area: No Experienced COVID-19 symptoms?: No Patient History Past Medical History: see triage record Now: No Reviewed Nursing Documentation: PMH: Agreed; PSxH: Agreed Nursing Documentation-PMH Past Medical History: No History, Except For Hx Hypertension: Yes Hx Diabetes: Yes Hx Multiple Sclerosis: Yes Review of Systems All Other Systems: negative except mentioned in HPI Physical Exam Vital Signs Date Time Temp Pulse Resp B/P (MAP) Pulse Ox O2 Delivery O2 Flow Rate FiO2 01/29/20 14:23 97.7 74 17 132/86 (101) 98 Room Air Sp02 EP Interpretation: reviewed, normal General Appearance: well appearing, no apparent distress Head: normocephalic, atraumatic Eyes: bilateral eye PERRL, bilateral eye EOMI ENT: hearing grossly normal, EOM grossly intact Neck: other - Significant scoliosis Respiratory: lungs clear, no respiratory distress, no retraction Cardiovascular #1: regular rate, rhythm Gastrointestinal: non tender, soft Musculoskeletal: other - Right lower posterior superior iliac crest region discomfort Neurologic: alert, oriented x3 Psychiatric: normal inspection Skin: no rash Medical Decision Making Diagnostic Impression: Primary Impression: Episode of generalized weakness Additional Impression: Multiple sclerosis exacerbation ER Course Patient is a fairly complex patient with multiple differential to consideration including but not limited to cardiac cardiopulmonary and vascular emergencies Other differential such as covid-19 entertained Also dehydration and infectious process Patient's blood work is at baseline levels patient continues to do well feels improved X-ray imaging is negative and she will have conservative outpatient trial Labs Test 01/29/20 15:15 White Blood Count 5.2 K/UL (4.8-10.8) Red Blood Count 4.49 M/UL (4.20-5.40) Hemoglobin 13.2 G/DL (12.0-16.0) Hematocrit 40.4 % (37.0-47.0) Mean Corpuscular Volume 90 FL (80-99) Mean Corpuscular Hemoglobin 29.4 PG (27.0-31.0) Mean Corpuscular Hemoglobin Concent 32.6 G/DL (32.0-36.0) Red Cell Distribution Width 12.6 % (11.6-14.8) Platelet Count 206 K/UL (150-450) Mean Platelet Volume 8.0 FL (6.5-10.1) Neutrophils (%) (Auto) 52.3 % (45.0-75.0) Lymphocytes (%) (Auto) 35.9 % (20.0-45.0) Monocytes (%) (Auto) 7.0 % (1.0-10.0) Eosinophils (%) (Auto) 2.9 % (0.0-3.0) Basophils (%) (Auto) 1.8 % (0.0-2.0) Urine Color Yellow Urine Appearance Clear Urine pH 6 (4.5-8.0) Urine Specific [place] 1.020 (1.005-1.035) Urine Protein Negative (NEGATIVE) Urine Glucose (UA) Negative (NEGATIVE) Urine Ketones Negative (NEGATIVE) Urine Blood 2+ (NEGATIVE) Urine Nitrite Negative (NEGATIVE) Urine Bilirubin Negative (NEGATIVE) Urine Urobilinogen Normal MG/DL (0.0-1.0) Urine Leukocyte Esterase Negative (NEGATIVE) Urine RBC 2-4 /HPF (0 - 2) Urine WBC 0-2 /HPF (0 - 2) Urine Squamous Epithelial Cells Few /LPF (NONE/OCC) Urine Bacteria Few /HPF (NONE) Sodium Level 142 MMOL/L (136-145) Potassium Level 3.7 MMOL/L (3.5-5.1) Chloride Level 105 MMOL/L (98-107) Carbon Dioxide Level 29 MMOL/L (21-32) Anion Gap 8 mmol/L (5-15) Blood Urea Nitrogen 15 mg/dL (7-18) Creatinine 0.8 MG/DL (0.55-1.30) Estimat Glomerular Filtration Rate > 60 mL/min (>60) Glucose Level 90 MG/DL (74-106) Calcium Level 9.3 MG/DL (8.5-10.1) Total Bilirubin 0.7 MG/DL (0.2-1.0) Aspartate Amino Transf (AST/SGOT) 19 U/L (15-37) Alanine Aminotransferase (ALT/SGPT) 12 U/L (12-78) Alkaline Phosphatase 110 U/L (46-116) Total Protein 7.5 G/DL (6.4-8.2) Albumin 3.9 G/DL (3.4-5.0) Globulin 3.6 g/dL Albumin/Globulin Ratio 1.1 (1.0-2.7) Lipase 100 U/L (73-393) Rhythm Strip Diag. Results EP Interpretation: yes Rate: 77 Rhythm: NSR, no PVC's, no ectopy Chest X-Ray Diagnostic Results Chest X-Ray Diagnostic Results : Chest X-Ray Ordered: Yes # of Views/Limited/Complete: 1 View Indication: Chest Pain EP Interpretation: Yes Interpretation: no consolidation, no effusion, no pneumothorax Impression: No acute disease Electronically Signed by: Rusty Gann DO Last Vital Signs Date Time Temp Pulse Resp B/P (MAP) Pulse Ox O2 Delivery O2 Flow Rate FiO2 01/29/20 14:23 97.7 74 17 132/86 (101) 98 Room Air Status: improved Disposition: HOME, SELF-CARE Condition: Improved Scripts Methylprednisolone (Methylprednisolone*) 4MG Dspk 4 MG ORAL DIRECTED for 6 Days, #21 EA 0 Refills Day 1: Two tablets before breakfast, one after lunch, one after dinner, and two at bedtime. If started late in the day, take all six tablets at once or divide into two or three doses, unless otherwise directed by prescriber. Day 2: One tablet before breakfast, one after lunch, one after dinner, and two at bedtime Day 3: One tablet before breakfast, one after lunch, one after dinner, and one at bedtime Day 4: One tablet before breakfast, one after lunch, and one at bedtime Day 5: One tablet before breakfast and one at bedtime Day 6: One tablet before breakfast Prov: Rusty Gann DO 01/29/20 Tramadol Hcl* (ULTRAM*) 50 Mg Tablet 50 MG ORAL Q12HR PRN for For Pain, #12 TAB 0 Refills Prov: Rusty Gann DO 01/29/20 Additional Instructions: Patient is provided with the discharge instructions notified to follow up with primary doctor in the next 2-3 days otherwise return to the er with any worsening symptoms. Please note that this report is being documented using [employer] technology. This can lead to erroneous entry secondary to incorrect interpretation by the dictating instrument. Rusty Gann DO Jan 29, 2020 14:53
[2020-01-29] MEDS ORDERED: Ketorolac 30mg Inj IV ONE (15:00)
[2020-01-29] MEDS ORDERED: Solu-MEDROL 125mg Inj IVP ONE (15:00)
[2020-01-29 15:51] LABS: BASOPHILS % (AUTO) 1.8 % (0.0-2.0); EOSINOPHILS % (AUTO) 2.9 % (0.0-3.0); HEMATOCRIT 40.4 % (37.0-47.0); HEMOGLOBIN 13.2 G/DL (12.0-16.0); LYMPHOCYTES % (AUTO) 35.9 % (20.0-45.0); MEAN CORPUSCULAR VOLUME 90 FL (80-99); NEUTROPHILS % (AUTO) 52.3 % (45.0-75.0); PLATELET COUNT 206 K/UL (150-450); RED BLOOD COUNT 4.49 M/UL (4.20-5.40); RED CELL DISTRIBUTION WIDTH 12.6 % (11.6-14.8); WHITE BLOOD COUNT 5.2 K/UL (4.8-10.8)
[2020-01-29 15:57] LABS: APPEARANCE,URINE CLEAR; BILIRUBIN, URINE NEGATIVE (NEGATIVE); GLUCOSE, URINE (UA) NEGATIVE (NEGATIVE); KETONES,URINE NEGATIVE (NEGATIVE); LEUKOCYTE ESTERASE ,URINE NEGATIVE (NEGATIVE); NITRITE,URINE NEGATIVE (NEGATIVE); PH,URINE 6 (4.5-8.0); PROTEIN,URINE NEGATIVE (NEGATIVE); UROBILINOGEN,URINE NORMAL MG/DL (0.0-1.0)
[2020-01-29 15:59] LABS: COLOR,URINE YELLOW
[2020-01-29 16:05] LABS: ANION GAP 8 mmol/L (5-15); BLOOD UREA NITROGEN 15 mg/dL (7-18); CALCIUM 9.3 MG/DL (8.5-10.1); CARBON DIOXIDE 29 MMOL/L (21-32); CHLORIDE 105 MMOL/L (98-107); CREATININE 0.8 MG/DL (0.55-1.30); POTASSIUM 3.7 MMOL/L (3.5-5.1); SODIUM 142 MMOL/L (136-145)
[2020-01-29 16:12] LABS: ALANINE AMINOTRANSFERASE 12 U/L (12-78); ALBUMIN 3.9 G/DL (3.4-5.0); ALBUMIN/GLOBULIN RATIO 1.1 (1.0-2.7); ALKALINE PHOSPHATASE 110 U/L (46-116); ASPARTATE AMINO TRANSFERASE 19 U/L (15-37); BILIRUBIN,TOTAL 0.7 MG/DL (0.2-1.0)
[2020-01-29] MEDS ORDERED: MEDROL DOSEPAK4 MG ORAL (16:30)
[2020-01-29] MEDS ORDERED: TRAMADOL HCL50 MG ORAL (16:30)
[2020-01-29 16:53] VITALS: BP 132/86
--- NOTE | 2020-01-29 16:53 | NUR ---
ER DISCHARGE NOTE: Patient is cleared to be discharged per ERMD, pt is aox4, on room air, with stable vital signs. pt was given dc and prescription instructions, pt was able to verbalize understanding, pt id band and iv site removed without complications. pt is able to ambulate with steady gait. pt took all belongings.
== END 2020-01-29 16:53 | disposition home or self-care (01) ==
LOC: EMR 15:00
DX: R53.1 Weakness (principal); G35 Multiple sclerosis; E11.9 Type 2 diabetes mellitus without complications; I10 Essential (primary) hypertension
CPT/HCPCS: 36415; 80053; 81003; 83690; 85025; 96361; 96374; 96375; J1885; J2930; J7030; Z7502; 99284

== ENCOUNTER 2020-02-22 18:41 | Emergency (ER) | payer OTHER ==
[~2020-02-22] VITALS: Ht 175.3 cm; Wt 97.5 kg
[~2020-02-22 18:41] MED LIST changes: +MEDROL DOSEPAK4 MG ORAL
--- NOTE | 2020-02-22 19:03 | NUR ---
ED Nurse Note:PT. CAME FROM HOME WITH C/O CRAMPING PAIN IN HER RIGHT SIDE FOR4 DAYS
--- NOTE | 2020-02-22 19:20 | NUR ---
ED Nurse Note: Recieved report from SUSHIL Pollock to resume care, pt ambulating to room, awake, alert and oriented x 4, here from home with c/o right flank pain radiating to back area possibly due to MS or her Rheumatoid Arthritis, pt has HX of both, states pain at 8/10 for 4 days and meds at home non effective, pt denies cp, sob, cough or fevers or any other complaints or discomforts.
--- NOTE | 2020-02-22 19:29 | Emergency Room Report ---
History of Present Illness General Chief Complaint: Pain Source: Patient Present Illness HPI Disclaimer: Please note that this report is being documented using DRAGON technology. This can lead to erroneous entry secondary to incorrect interpretation by the dictating instrument. HPI: This is a 59-year-old female with a history of multiple sclerosis presenting for evaluation of weakness and side cramping. Over the past 3 days the patient notes worsening generalized weakness. She is still able to ambulate with the use of her walker which is her baseline. She has been slumping more to the right side which she typically does when she feels weak and experiencing side cramps. Similar presentation 1 month ago that improved after a few days after receiving steroids. She follows regularly with PMD but was not able to see them in the office due to COVID-19 limiting visits. Denies any recent illness and denies any recent fever, chills, nasal congestion, sore throat, cough, shortness of breath, chest pain, nausea, vomiting, diarrhea. Eating and drinking at baseline. Denies dysuria, hematuria, urinary retention, history of kidney stones. Pain is worse with bending and twisting motion and is positional in nature sometimes relieved by rest. She believes she may have strained it while cleaning her apartment a few days ago. PMH: Multiple sclerosis, hypertension, GERD PSH: Reviewed Allergies: No known drug allergies Social Hx: Denies drug or alcohol use Allergies: Coded Allergies: NO KNOWN ALLERGIES (Unverified Allergy, Unknown, 10/17/15) CITRUS AND DERIVATIVES (Verified Adverse Reaction, Unknown, 02/20/18) acid reflux and mucus increased production COVID-19 Screening Contact w/high risk pt: No Recent Travel to affected area: No Experienced COVID-19 symptoms?: No Patient History Last Menstrual Period: na Nursing Documentation-PMH Past Medical History: No History, Except For Hx Hypertension: Yes Hx Diabetes: Yes Hx Multiple Sclerosis: Yes Review of Systems All Other Systems: negative except mentioned in HPI Physical Exam Vital Signs Date Time Temp Pulse Resp B/P (MAP) Pulse Ox O2 Delivery O2 Flow Rate FiO2 02/22/20 18:45 97.9 65 18 146/85 (105) 97 Room Air General: Awake and alert, no acute distress HEENT: NC/AT. EOMI. Resp: Normal work of breathing Abdomen: Abdomen is soft, nondistended. Nontender Skin: Intact. No abrasions, laceration or rash over the exposed skin MSK: Normal tone and bulk. Moving all extremities. No obvious deformity. Able to bear weight bilaterally. Ambulating with the use of a walker. Neuro: Awake and alert. Mentating appropriately. Sensation is intact over the saddle and lower extremities diffusely. Back/Spine: No midline tenderness in the cervical, thoracic or lumbosacral spine. There is significant kyphosis and patient is leaning to her right side. No CVA tenderness but there is just a diffuse aching on palpation over the mid axillary and mid scapular line. No obvious trigger point. Medical Decision Making Diagnostic Impression: Primary Impression: Episode of generalized weakness ER Course This a 59-year-old female with history of multiple sclerosis presenting for generalized weakness and right-sided back pain of 3 days duration. Differential includes was not limited to dehydration, UTI, pyelonephritis, muscle strain, muscle spasm, chronic pain, MS exacerbation, electrolyte abnormality, anemia to name a few. She is overall well-appearing with stable vital signs and is overall well-appearing. She is able to ambulate at baseline. Labs were obtained to rule out significant metabolic infectious etiologies. They have returned within normal limits. Patient reports feeling better after receiving IV steroids. Will continue on oral steroids. Will discharge to follow-up with PMD. Discussed reasons to return to the emergency department. Understands and agrees with treatment plan. Laboratory Tests Test 02/22/20 19:20 02/22/20 19:30 Urine Color Pale yellow Urine Appearance Clear Urine pH 5 (4.5-8.0) Urine Specific [place] 1.025 (1.005-1.035) Urine Protein Negative (NEGATIVE) Urine Glucose (UA) Negative (NEGATIVE) Urine Ketones Negative (NEGATIVE) Urine Blood 2+ (NEGATIVE) H Urine Nitrite Negative (NEGATIVE) Urine Bilirubin Negative (NEGATIVE) Urine Urobilinogen Normal MG/DL (0.0-1.0) Urine Leukocyte Esterase 2+ (NEGATIVE) H Urine RBC 0-2 /HPF (0 - 2) Urine WBC 2-4 /HPF (0 - 2) Urine Squamous Epithelial Cells Few /LPF (NONE/OCC) Urine Bacteria None /HPF (NONE) White Blood Count 6.2 K/UL (4.8-10.8) Red Blood Count 4.50 M/UL (4.20-5.40) Hemoglobin 13.1 G/DL (12.0-16.0) Hematocrit 41.0 % (37.0-47.0) Mean Corpuscular Volume 91 FL (80-99) Mean Corpuscular Hemoglobin 29.2 PG (27.0-31.0) Mean Corpuscular Hemoglobin Concent 32.0 G/DL (32.0-36.0) Red Cell Distribution Width 12.8 % (11.6-14.8) Platelet Count 215 K/UL (150-450) Mean Platelet Volume 7.2 FL (6.5-10.1) Neutrophils (%) (Auto) 49.6 % (45.0-75.0) Lymphocytes (%) (Auto) 39.6 % (20.0-45.0) Monocytes (%) (Auto) 6.9 % (1.0-10.0) Eosinophils (%) (Auto) 2.3 % (0.0-3.0) Basophils (%) (Auto) 1.6 % (0.0-2.0) Sodium Level 143 MMOL/L (136-145) Potassium Level 4.0 MMOL/L (3.5-5.1) Chloride Level 105 MMOL/L (98-107) Carbon Dioxide Level 30 MMOL/L (21-32) Anion Gap 8 mmol/L (5-15) Blood Urea Nitrogen 18 mg/dL (7-18) Creatinine 0.9 MG/DL (0.55-1.30) Estimated Glomerular Filtration Rate > 60 mL/min (>60) Glucose Level 82 MG/DL (74-106) Calcium Level 9.0 MG/DL (8.5-10.1) Total Bilirubin 0.6 MG/DL (0.2-1.0) Aspartate Amino Transferase (AST) 22 U/L (15-37) Alanine Aminotransferase (ALT) 14 U/L (12-78) Alkaline Phosphatase 111 U/L (46-116) Total Protein 8.0 G/DL (6.4-8.2) Albumin 4.0 G/DL (3.4-5.0) Globulin 4.0 g/dL Albumin/Globulin Ratio 1.0 (1.0-2.7) Last Vital Signs Date Time Temp Pulse Resp B/P (MAP) Pulse Ox O2 Delivery O2 Flow Rate FiO2 02/22/20 18:45 97.9 65 18 146/85 (105) 97 Room Air Disposition: HOME, SELF-CARE Condition: Stable Scripts Prednisone* (PREDNISONE*) 50 Mg Tablet 50 MG ORAL DAILY for 5 Days, #5 TAB 0 Refills Prov: Dejuan Negrete MD 02/22/20 Dejuan Negrete MD February 22, 2020 19:29
[2020-02-22] MEDS ORDERED: Ketorolac 30mg Inj IV ONE (19:30)
[2020-02-22] MEDS ORDERED: Solu-MEDROL 125mg Inj IVP ONE (19:30)
[2020-02-22 19:40] LABS: APPEARANCE,URINE CLEAR; BILIRUBIN, URINE NEGATIVE (NEGATIVE); COLOR,URINE PALE YELLOW; GLUCOSE, URINE (UA) NEGATIVE (NEGATIVE); KETONES,URINE NEGATIVE (NEGATIVE); LEUKOCYTE ESTERASE ,URINE 2+ (NEGATIVE); NITRITE,URINE NEGATIVE (NEGATIVE); PH,URINE 5 (4.5-8.0); PROTEIN,URINE NEGATIVE (NEGATIVE); UROBILINOGEN,URINE NORMAL MG/DL (0.0-1.0)
[2020-02-22] MEDS ORDERED: methylPREDNISolone Sod Succ 1,000 MG in NS 275 ML IVPB ONE (19:45)
[2020-02-22 20:07] LABS: BASOPHILS % (AUTO) 1.6 % (0.0-2.0); EOSINOPHILS % (AUTO) 2.3 % (0.0-3.0); HEMOGLOBIN 13.1 G/DL (12.0-16.0); LYMPHOCYTES % (AUTO) 39.6 % (20.0-45.0); MEAN CORPUSCULAR VOLUME 91 FL (80-99); MONOCYTES % (AUTO) 6.9 % (1.0-10.0); NEUTROPHILS % (AUTO) 49.6 % (45.0-75.0); PLATELET COUNT 215 K/UL (150-450); RED CELL DISTRIBUTION WIDTH 12.8 % (11.6-14.8); WHITE BLOOD COUNT 6.2 K/UL (4.8-10.8)
[2020-02-22 20:13] LABS: ANION GAP 8 mmol/L (5-15); BLOOD UREA NITROGEN 18 mg/dL (7-18); CARBON DIOXIDE 30 MMOL/L (21-32); CHLORIDE 105 MMOL/L (98-107); CREATININE 0.9 MG/DL (0.55-1.30); SODIUM 143 MMOL/L (136-145)
[2020-02-22 20:18] LABS: ALANINE AMINOTRANSFERASE 14 U/L (12-78); ALKALINE PHOSPHATASE 111 U/L (46-116); ASPARTATE AMINO TRANSFERASE 22 U/L (15-37); BILIRUBIN,TOTAL 0.6 MG/DL (0.2-1.0)
[2020-02-22] MEDS ORDERED: PREDNISONE50 MG ORAL (20:25)
[2020-02-22] MEDS ORDERED: Morphine Sulfate 2mg/ml Inj(IV/IM USE ONLY) IVP ONE (20:30)
--- NOTE | 2020-02-22 21:35 | NUR ---
ED Nurse Note: Pt tolerated med well, IV site patent, pt also states pain resolved, level at 0/10 currently, pt ambulated to bathroom, tolerated well, steady gait and appears to be doing better than when arrived ambulating, MD aware, will prepare for disposition.
[2020-02-22 22:00] VITALS: BP 141/74
--- NOTE | 2020-02-22 22:30 | NUR ---
ER DISCHARGE NOTE: Patient is cleared to be discharged per ERMD, pt is aox4, on room air, with stable vital signs. pt was given dc and prescription instructions, pt was able to verbalize understanding, pt id band and iv site removed without complications. pt is able to ambulate with steady gait. pt took all belongings.pt d/c by debra monzon
[2020-02-22 22:54] VITALS: BP 141/74
== END 2020-02-22 22:30 | disposition home or self-care (01) ==
LOC: EMR 19:24
DX: R53.1 Weakness (principal); G35 Multiple sclerosis; I10 Essential (primary) hypertension; K21.9 Gastro-esophageal reflux disease without esophagitis; E11.9 Type 2 diabetes mellitus without complications; M40.209 Unspecified kyphosis, site unspecified
CPT/HCPCS: 36415; 80053; 81003; 85025; 96365; 96375; J1885; J2270; J7050; Z7502; 99284

== ENCOUNTER 2020-03-17 10:42 | Emergency (ER) | payer OTHER ==
[~2020-03-17] VITALS: Ht 175.3 cm; Wt 97.5 kg
[2020-03-17 11:45] VITALS: BP 138/84
[2020-03-17 12:11] LABS: BASOPHILS % (AUTO) 0.8 % (0.0-2.0); EOSINOPHILS % (AUTO) 4.4 % (0.0-3.0); HEMATOCRIT 36.5 % (37.0-47.0); HEMOGLOBIN 12.5 G/DL (12.0-16.0); LYMPHOCYTES % (AUTO) 32.1 % (20.0-45.0); MEAN CORPUSCULAR VOLUME 86 FL (80-99); NEUTROPHILS % (AUTO) 53.6 % (45.0-75.0); PLATELET COUNT 207 K/UL (150-450); RED BLOOD COUNT 4.26 M/UL (4.20-5.40); RED CELL DISTRIBUTION WIDTH 11.1 % (11.6-14.8); WHITE BLOOD COUNT 5.4 K/UL (4.8-10.8)
[2020-03-17 12:40] LABS: APPEARANCE,URINE CLEAR; BILIRUBIN, URINE NEGATIVE (NEGATIVE); GLUCOSE, URINE (UA) NEGATIVE (NEGATIVE); KETONES,URINE NEGATIVE (NEGATIVE); LEUKOCYTE ESTERASE ,URINE NEGATIVE (NEGATIVE); NITRITE,URINE NEGATIVE (NEGATIVE); PH,URINE 5 (4.5-8.0); PROTEIN,URINE NEGATIVE (NEGATIVE); UROBILINOGEN,URINE NORMAL MG/DL (0.0-1.0)
[2020-03-17 12:46] LABS: ANION GAP 12 mmol/L (5-15); BLOOD UREA NITROGEN 17 mg/dL (7-18); CALCIUM 8.7 MG/DL (8.5-10.1); CARBON DIOXIDE 26 MMOL/L (21-32); CHLORIDE 106 MMOL/L (98-107); CREATININE 0.9 MG/DL (0.55-1.30); POTASSIUM 3.9 MMOL/L (3.5-5.1); SODIUM 144 MMOL/L (136-145)
[2020-03-17 12:49] LABS: COLOR,URINE YELLOW
[2020-03-17 12:51] LABS: ALANINE AMINOTRANSFERASE 6 U/L (12-78); ALBUMIN 3.6 G/DL (3.4-5.0); ALBUMIN/GLOBULIN RATIO 1.1 (1.0-2.7); ALKALINE PHOSPHATASE 100 U/L (46-116); ASPARTATE AMINO TRANSFERASE 15 U/L (15-37); BILIRUBIN,TOTAL 0.6 MG/DL (0.2-1.0)
--- NOTE | 2020-03-17 14:21 | Emergency Room Report ---
History of Present Illness General Chief Complaint: Generalized Weakness Source: Patient Present Illness HPI This patient has a history of MS. she states that over the past 6 weeks she has had progressive worsening of her weakness. She states primarily her weakness has been on her left side but now she is having significant weakness in her right side. She states she also has had a lot of burning pain. She has seen her primary care physician and a neurologist, however, she states that the medication that she needs is not covered by her insurance. Therefore she is on only what her insurance will cover. She denies recent illness. Denies cough or congestion. Denies fever or chills. She denies difficulty breathing or shortness of breath. She denies abdominal pain. She denies fever or chills. She denies dysuria or hematuria. She denies headache or neck pain. She has no other complaints. Allergies: Coded Allergies: NO KNOWN ALLERGIES (Unverified Allergy, Unknown, 10/17/15) CITRUS AND DERIVATIVES (Verified Adverse Reaction, Unknown, 02/20/18) acid reflux and mucus increased production COVID-19 Screening Contact w/high risk pt: No Recent Travel to affected area: No Experienced COVID-19 symptoms?: No COVID-19 Testing performed TIEDOWN OPERATOR: No Patient History Past Medical History: see triage record, DM, HTN, other - MS, RA, OA Social History: Denies: smoking, alcohol use, drug use Reviewed Nursing Documentation: PMH: Agreed; PSxH: Agreed Nursing Documentation-PMH Past Medical History: No History, Except For Hx Hypertension: Yes Hx Diabetes: Yes Hx Multiple Sclerosis: Yes Review of Systems All Other Systems: negative except mentioned in HPI Physical Exam Vital Signs Date Time Temp Pulse Resp B/P (MAP) Pulse Ox O2 Delivery O2 Flow Rate FiO2 03/17/20 10:50 98.8 80 16 132/86 (101) 96 Room Air Sp02 EP Interpretation: reviewed, normal General Appearance: no apparent distress, alert, GCS 15, non-toxic Head: normocephalic, atraumatic Eyes: bilateral eye other - strabysmus ENT: hearing grossly normal, normal pharynx, no angioedema, normal voice Neck: full range of motion, supple/symm/no masses Respiratory: chest non-tender, lungs clear, normal breath sounds, no respiratory distress, no retraction, no accessory muscle use, speaking full sentences Cardiovascular #1: regular rate, rhythm, no edema Gastrointestinal: normal bowel sounds, non tender, soft, non-distended, no guarding, no rebound Rectal: deferred Musculoskeletal: normal inspection, normal range of motion, non-tender, other - Antalgic gait Neurologic: alert, oriented x3, responsive, speech normal, other - Scattered weakness, difficulty walking. Psychiatric: judgement/insight normal, memory normal, mood/affect normal, no suicidal/homicidal ideation Skin: no rash, normal color Medical Decision Making Diagnostic Impression: Primary Impression: Exacerbation of multiple sclerosis ER Course This patient has an exacerbation of her multiple sclerosis. She is failing the outpatient medications that she is currently on. She continues to have progressive weakness. The patient is unable to tolerate her symptoms any further. She is admitted for further evaluation and treatment by neurology. Laboratory work-up was unremarkable and overall the patient remained stable in the emergency department. The patient's insurance company requested her transfer to [facility]. The patient is stable for transfer. An accepting hospitalist was contacted and report was given. The patient is transferred to [facility]. Laboratory Tests Test 03/17/20 11:40 03/17/20 12:10 White Blood Count 5.4 K/UL (4.8-10.8) Red Blood Count 4.26 M/UL (4.20-5.40) Hemoglobin 12.5 G/DL (12.0-16.0) Hematocrit 36.5 % (37.0-47.0) L Mean Corpuscular Volume 86 FL (80-99) Mean Corpuscular Hemoglobin 29.4 PG (27.0-31.0) Mean Corpuscular Hemoglobin Concent 34.3 G/DL (32.0-36.0) Red Cell Distribution Width 11.1 % (11.6-14.8) L Platelet Count 207 K/UL (150-450) Mean Platelet Volume 6.0 FL (6.5-10.1) L Neutrophils (%) (Auto) 53.6 % (45.0-75.0) Lymphocytes (%) (Auto) 32.1 % (20.0-45.0) Monocytes (%) (Auto) 9.0 % (1.0-10.0) Eosinophils (%) (Auto) 4.4 % (0.0-3.0) H Basophils (%) (Auto) 0.8 % (0.0-2.0) Sodium Level 144 MMOL/L (136-145) Potassium Level 3.9 MMOL/L (3.5-5.1) Chloride Level 106 MMOL/L (98-107) Carbon Dioxide Level 26 MMOL/L (21-32) Anion Gap 12 mmol/L (5-15) Blood Urea Nitrogen 17 mg/dL (7-18) Creatinine 0.9 MG/DL (0.55-1.30) Estimated Glomerular Filtration Rate > 60 mL/min (>60) Glucose Level 106 MG/DL (74-106) Calcium Level 8.7 MG/DL (8.5-10.1) Total Bilirubin 0.6 MG/DL (0.2-1.0) Aspartate Amino Transferase (AST) 15 U/L (15-37) Alanine Aminotransferase (ALT) 6 U/L (12-78) L Alkaline Phosphatase 100 U/L (46-116) Troponin I 0.011 ng/mL (0.000-0.056) Total Protein 7.0 G/DL (6.4-8.2) Albumin 3.6 G/DL (3.4-5.0) Globulin 3.4 g/dL Albumin/Globulin Ratio 1.1 (1.0-2.7) Lipase 127 U/L (73-393) Urine Color Yellow Urine Appearance Clear Urine pH 5 (4.5-8.0) Urine Specific [place] 1.025 (1.005-1.035) Urine Protein Negative (NEGATIVE) Urine Glucose (UA) Negative (NEGATIVE) Urine Ketones Negative (NEGATIVE) Urine Blood 2+ (NEGATIVE) H Urine Nitrite Negative (NEGATIVE) Urine Bilirubin Negative (NEGATIVE) Urine Urobilinogen Normal MG/DL (0.0-1.0) Urine Leukocyte Esterase Negative (NEGATIVE) Urine RBC 0-2 /HPF (0 - 2) Urine WBC 0-2 /HPF (0 - 2) Urine Squamous Epithelial Cells Occasional /LPF Urine Bacteria Occasional /HPF (NONE) Urine Mucus Moderate /LPF (NONE/OCC) H EKG Diagnostic Results Rate: normal Rhythm: NSR ST Segments: no acute changes Rhythm Strip Diag. Results EP Interpretation: yes Rate: 60's Rhythm: NSR, no PVC's, no ectopy Last Vital Signs Date Time Temp Pulse Resp B/P (MAP) Pulse Ox O2 Delivery O2 Flow Rate FiO2 03/17/20 11:45 98.7 84 16 138/84 97 Room Air Disposition: SHORT-TERM HOSP Condition: Stable Referrals: [facility],REFERRING (PCP) Karen Hanks DO Mar 17, 2020 14:21
[2020-03-17 14:40] VITALS: BP 134/78
== END 2020-03-17 14:40 | disposition short-term general hospital (02) ==
LOC: EMR 11:19 → EDBEDREQ 14:14 → EMR 14:40
DX: G35 Multiple sclerosis (principal); E11.9 Type 2 diabetes mellitus without complications; I10 Essential (primary) hypertension; M06.9 Rheumatoid arthritis, unspecified; M19.90 Unspecified osteoarthritis, unspecified site; Z91.018 Allergy to other foods
CPT/HCPCS: 36415; 80053; 81003; 83690; 84484; 85025; 93005; 96360; J7030; Z7502; 99284

== ENCOUNTER 2020-07-13 14:33 | Emergency (ER) | payer OTHER ==
[~2020-07-13] VITALS: Ht 175.3 cm; Wt 113.4 kg
[2020-07-13 15:16] VITALS: BP 152/96
--- NOTE | 2020-07-13 15:24 | Emergency Room Report ---
History of Present Illness General Chief Complaint: Skin Rash/Abscess Source: Medical Record Present Illness HPI 59-year-old female with history of rheumatoid arthritis, osteoarthritis, multiple sclerosis currently under the care of gastroenterology technician and neurologist here complaining of worsening low back pain without any fall or injury. Patient reports that she often takes prednisone for it however has not taken in the past several weeks. Denies any urinary bowel incontinence. Denies saddle paresthesia tingling numbness. Also complains of a painless" bump" inside left upper lip but does not recall how it happened. Denies any fall or injury. Denies any sore throat, cough and congestion, fever and chills. Denies any history of herpes virus. Has not taken medication for symptom relief. Sitting comfortably with stable vital signs. Patient is ambulating with a walker. Allergies: Coded Allergies: NO KNOWN ALLERGIES (Unverified Allergy, Unknown, 10/17/15) CITRUS AND DERIVATIVES (Verified Adverse Reaction, Unknown, 02/20/18) acid reflux and mucus increased production COVID-19 Screening Contact w/high risk pt: No Recent Travel to affected area: No Experienced COVID-19 symptoms?: No COVID-19 Testing performed WORKFORCE MANAGEMENT COORDINATOR: No Patient History Past Surgical History: none Pertinent Family History: none Immunizations: UTD Reviewed Nursing Documentation: PMH: Agreed; PSxH: Agreed Nursing Documentation-PMH Past Medical History: No History, Except For Hx Hypertension: Yes Hx Diabetes: Yes Hx Multiple Sclerosis: Yes Review of Systems All Other Systems: negative except mentioned in HPI Physical Exam Vital Signs Date Time Temp Pulse Resp B/P (MAP) Pulse Ox O2 Delivery O2 Flow Rate FiO2 07/13/20 14:41 98.2 92 16 152/96 (114) 94 Room Air Sp02 EP Interpretation: reviewed, normal General Appearance: no apparent distress, alert, GCS 15, non-toxic Head: normocephalic, atraumatic Eyes: bilateral eye normal inspection, bilateral eye PERRL ENT: hearing grossly normal, normal pharynx, no angioedema, normal voice Neck: full range of motion, supple/symm/no masses Respiratory: chest non-tender, lungs clear, normal breath sounds, speaking full sentences Cardiovascular #1: regular rate, rhythm, no edema Cardiovascular #2: 2+ carotid (R), 2+ carotid (L), 2+ radial (R), 2+ radial (L), 2+ dorsalis pedis (R), 2+ dorsalis pedis (L) Gastrointestinal: normal bowel sounds, non tender, soft, non-distended, no guarding, no rebound Rectal: deferred Genitourinary: no CVA tenderness Musculoskeletal: back normal Neurologic: alert, motor strength/tone normal, oriented x3, sensory intact, responsive, speech normal Psychiatric: judgement/insight normal, memory normal, mood/affect normal, no suicidal/homicidal ideation Skin: rash - aphthous ulcer left upper lip Lymphatic: no adenopathy Medical Decision Making PA Attestation All my diagnosis and treatment plans were reviewed ad discussed with my supervising physician Dr. Garcia Diagnostic Impression: Primary Impression: Aphthous ulcer Additional Impression: Chronic arthritis ER Course 59-year-old female with history of rheumatoid arthritis, osteoarthritis, multiple sclerosis currently under the care of gastroenterology technician and neurologist here complaining of worsening low back pain without any fall or injury. Patient reports that she often takes prednisone for it however has not taken in the past several weeks. Denies any urinary bowel incontinence. Denies saddle paresthesia tingling numbness. Also complains of a painless" bump" inside left upper lip but does not recall how it happened. Denies any fall or injury. Denies any sore throat, cough and congestion, fever and chills. Denies any history of herpes virus. Has not taken medication for symptom relief. Sitting comfortably with stable vital signs. Patient is ambulating with a walker. Ddx considered but are not limited to: Lumbar spine sprain, strain, fracture, contusion, neuropathy, chronic arthritis, aphthous ulcer, herpes virus Vital signs: are WNL, pt. is afebrile H&PE are most consistent with: Aphthous ulcer, chronic arthritis At this time no imaging needed patient is up-to-date with her gastroenterology technician, activities specialist, neurologist and has had multiple imaging in the past few months. Also patient has not had any fall or injury. Reports that this pain has always been there and is getting more chronic. ORDERS: Prednisone, mupirocin ointment, Voltaren gel ER intervention: Toradol, dexamethasone DISCHARGE: At this time pt. is stable for d/c to home. Will provide printed patient care instructions, and any necessary prescriptions. Care plan and follow up instructions have been discussed with the patient prior to discharge. Patient to follow-up with activities specialist, gastroenterology technician and neurologist, if worsening symptoms return to emergency room. Last Vital Signs Date Time Temp Pulse Resp B/P (MAP) Pulse Ox O2 Delivery O2 Flow Rate FiO2 07/13/20 15:16 98.2 89 16 152/96 94 Room Air Disposition: HOME, SELF-CARE Condition: Stable Scripts Prednisone* (PREDNISONE*) 20 Mg Tablet 40 MG ORAL DAILY for 5 Days, #10 TAB Prov: Maxim Vargas 07/13/20 Diclofenac Sodium (VOLTAREN) 100 Gm Gel..gram. 2 GM TP TID, #100 GM Prov: Maxim Vargas 07/13/20 Mupirocin* (MUPIROCIN*) 22 Gm Oint...g. 1 APPLIC TOPIC THREE TIMES A DAY, #22 GM Prov: Maxim Vargas 07/13/20 Patient Instructions: Canker Sores, Chronic Pain Additional Instructions: Take medication as directed, follow primary care provider, gastroenterology technician, pain management if worsening symptoms return to the emergency room Maxim Vargas Jul 13, 2020 15:24
[2020-07-13] MEDS ORDERED: VOLTAREN100 G1 TP (15:27)
[2020-07-13] MEDS ORDERED: MUPIROCIN22 GM TOPIC (15:27)
[2020-07-13] MEDS ORDERED: PREDNISONE20 MG ORAL (15:27)
[2020-07-13] MEDS ORDERED: Ketorolac 30mg Inj IM ONE (15:30)
[2020-07-13 15:40] VITALS: BP 149/90
== END 2020-07-13 15:40 | disposition home or self-care (01) ==
LOC: EMR 15:05
DX: K12.0 Recurrent oral aphthae (principal); M06.9 Rheumatoid arthritis, unspecified; G35 Multiple sclerosis; M19.90 Unspecified osteoarthritis, unspecified site; I10 Essential (primary) hypertension; E11.9 Type 2 diabetes mellitus without complications; Z91.018 Allergy to other foods; Z79.899 Other long term (current) drug therapy
CPT/HCPCS: 96372; J1100; J1885; Z7502; 99283

== ENCOUNTER 2020-08-14 10:44 | Emergency (ER) | payer OTHER ==
[~2020-08-14] VITALS: Ht 175.3 cm; Wt 97.5 kg
[~2020-08-14 10:44] MED LIST changes: +MUPIROCIN22 GM TOPIC
--- NOTE | 2020-08-14 11:05 | NUR ---
ED Nurse Note: pt presents to ED c/o tooth pain. pt states that she has broken teeth on her upper L row and R lower row of teeth and the sharp pieces of teeth are cutting into her tongue causing pain. pt report that she has an appt with her denist on 08/31 and wants something for pain until then. pt denies any fevers/chills
[2020-08-14 11:10] VITALS: BP 160/91
[2020-08-14] MEDS ORDERED: IBUPROFEN600 M1 ORAL (11:11)
[2020-08-14] MEDS ORDERED: NORCO 5-325 TA1 EAC1 ORAL (11:11)
[2020-08-14] MEDS ORDERED: AMOXICILLIN500 MG ORAL (11:11)
[2020-08-14] MEDS ORDERED: PERIDEX15 ML MM (11:11)
[2020-08-14 11:20] VITALS: BP 153/91
--- NOTE | 2020-08-14 11:20 | NUR ---
ER DISCHARGE NOTE: Patient is cleared to be discharged per ERMD, pt is aox4, on room air, with stable vital signs. pt was given dc and prescription instructions. pt was also provided with list of dental clinics for f/u. pt was able to verbalize understanding, pt id band removed without complications. pt is able to ambulate with steady gait. pt took all belongings.
--- NOTE | 2020-08-14 11:21 | Emergency Room Report ---
History of Present Illness General Chief Complaint: Toothache Source: Patient Present Illness HPI Patient presents emergency department today complaining of dental pain. Patient has a history of dental caries with multiple fillings. States that she cracked her tooth last couple of weeks. And has been trying to get a dental appointment. Her appointment is not for another 2 weeks. She presents here because the pain is getting worse. She denies any swelling. Denies any difficulty swallowing. Denies any fever nausea vomiting diarrhea chills. Just has pain. No other complaints are noted. Symptoms noted to be moderate to severe. No other modifying factors. No other associated signs and symptoms. No other complaints were noted. Allergies: Coded Allergies: NO KNOWN ALLERGIES (Unverified Allergy, Unknown, 10/17/15) CITRUS AND DERIVATIVES (Verified Adverse Reaction, Unknown, 02/20/18) acid reflux and mucus increased production COVID-19 Screening Contact w/high risk pt: No Recent Travel to affected area: No Experienced COVID-19 symptoms?: No COVID-19 Testing performed DESILVERIZER: No Patient History Past Medical History: DM, HTN Past Surgical History: none Pertinent Family History: none Social History: Denies: smoking, alcohol use, drug use Reviewed Nursing Documentation: PMH: Agreed; PSxH: Agreed Nursing Documentation-PMH Past Medical History: No History, Except For Hx Hypertension: Yes Hx Diabetes: Yes Hx Multiple Sclerosis: Yes Review of Systems All Other Systems: negative except mentioned in HPI Physical Exam Vital Signs Date Time Temp Pulse Resp B/P (MAP) Pulse Ox O2 Delivery O2 Flow Rate FiO2 08/14/20 10:52 98.2 69 18 160/91 (114) 95 Room Air Sp02 EP Interpretation: reviewed, normal General Appearance: normal inspection, well appearing, no apparent distress, alert Head: atraumatic Eyes: bilateral eye normal inspection ENT: hearing grossly normal, normal voice, other - Multiple dental caries Neck: normal inspection, full range of motion, supple, no bony tend Respiratory: normal inspection, lungs clear, normal breath sounds, no respiratory distress, no retraction, no wheezing Cardiovascular #1: regular rate, rhythm, no edema Gastrointestinal: normal inspection, normal bowel sounds, non tender, soft, no guarding, no hernia Genitourinary: no CVA tenderness Musculoskeletal: normal inspection, back normal, normal range of motion Neurologic: alert, responsive, speech normal, normal inspection Psychiatric: normal inspection, judgement/insight normal, mood/affect normal Skin: no rash Medical Decision Making Diagnostic Impression: Primary Impression: Toothache ER Course Patient presents emergency department today complaint dental caries. Differential considerations include infectious process, dental abscess, dental caries, cracked tooth just name a few. Patient's exam is consistent with dental caries cracked tooth and dislodged fillings. I feel the patient would benefit in pain medications antibiotics antibiotic mouth rinse. Patient was given referral or list of dental clinics to consider. Recommend close follow-up with dentistry. Return to ER if worse. Patient is advised to follow up with primary doctor in 2-3 days and return the emergency room for any worsening symptoms and as needed. Last Vital Signs Date Time Temp Pulse Resp B/P (MAP) Pulse Ox O2 Delivery O2 Flow Rate FiO2 08/14/20 11:10 98.2 78 18 160/91 95 Room Air Status: improved Disposition: HOME, SELF-CARE Condition: Stable Scripts Amoxicillin* (AMOXIL*) 500 Mg Capsule 500 MG ORAL THREE TIMES A DAY, #21 CAP Prov: Maurice Alanis MD 08/14/20 Chlorhexidine Gluconate (Peridex) 15 Ml Mouthwash 15 ML MM BID for 28 Days, ML Prov: Maurice Alanis MD 08/14/20 Ibuprofen* (MOTRIN*) 600 Mg Tablet 600 MG ORAL Q6H PRN for FOR PAIN, #20 TAB 0 Refills Prov: Maurice Alanis MD 08/14/20 Hydrocodone Bit/Acetaminophen 5-325* (NORCO 5-325 TABLET*) 1 Each Tablet 1 TAB ORAL Q4H PRN for FOR PAIN, #12 TAB 0 Refills Prov: Maurice Alanis MD 08/14/20 Patient Instructions: Dental Pain Maurice Alanis MD Aug 14, 2020 11:21
== END 2020-08-14 11:20 | disposition home or self-care (01) ==
LOC: EMR 11:00
DX: K02.9 Dental caries, unspecified (principal); K08.89 Other specified disorders of teeth and supporting structures; E11.9 Type 2 diabetes mellitus without complications; I10 Essential (primary) hypertension; G35 Multiple sclerosis
CPT/HCPCS: 99282

== ENCOUNTER 2020-09-26 17:43 | Emergency (ER) | payer OTHER ==
[~2020-09-26] VITALS: Ht 175.3 cm; Wt 97.5 kg
[~2020-09-26 17:43] MED LIST changes: +AMOXICILLIN500 MG ORAL; +IBUPROFEN600 M1 ORAL; +NORCO 5-325 TA1 EAC1 ORAL; +PERIDEX15 ML MM
[2020-09-26 18:01] VITALS: BP 144/89
[2020-09-26] MEDS ORDERED: LIDOCAINE VISC100 ML ORAL (18:18)
[2020-09-26 18:24] VITALS: BP 144/89
--- NOTE | 2020-10-01 14:54 | Emergency Room Report ---
History of Present Illness General Chief Complaint: General Complaint Source: Patient Present Illness HPI Patient is a 59-year-old female presents for lesion to her lip. Had noticed this to be slightly increasing in size over time. Had previously been started on antiviral medications without any improvement. Persistent pain to the reports having persistent discomfort. Denies any recent trauma. Allergies: Coded Allergies: NO KNOWN ALLERGIES (Unverified Allergy, Unknown, 10/17/15) CITRUS AND DERIVATIVES (Verified Adverse Reaction, Unknown, 02/20/18) acid reflux and mucus increased production COVID-19 Screening Contact w/high risk pt: No Recent Travel to affected area: No Experienced COVID-19 symptoms?: No COVID-19 Testing performed [employer]AX[employer] TE[employer]ER: No Patient History Past Medical History: see triage record Reviewed Nursing Documentation: PMH: Agreed; PSxH: Agreed Nursing Documentation-PMH Hx Hypertension: Yes Hx Diabetes: Yes Hx Multiple Sclerosis: Yes Review of Systems All Other Systems: negative except mentioned in HPI Physical Exam General Appearance: well appearing, no apparent distress, alert, GCS 15, non- toxic Head: normocephalic, atraumatic ENT: hearing grossly normal, normal voice, other - Left with cystic lesion without evidence of erythema or warmth. Neck: full range of motion, supple Respiratory: no respiratory distress, speaking full sentences Cardiovascular #1: normal inspection Gastrointestinal: normal inspection Musculoskeletal: normal inspection, gait/station normal, normal range of motion Neurologic: alert, motor strength/tone normal, oriented x3, normal gait Psychiatric: normal inspection, mood/affect normal Skin: no rash Medical Decision Making Diagnostic Impression: Primary Impression: Cyst of lip ER Course Patient presented with lip lesion. Differential diagnosis include was not limited to cystic lesion, aphthous ulcer, herpes among others. Patient has a benign exam and does not appear to require any imaging or laboratory testing at this time. Patient's lesion appears to be a cyst. Does not appear to have any evidence of infection at this time. Patient was advised to follow-up with oral surgery or ENT for definitive management. Patient was agreeable with discharge plan. The patient is advised to follow up with primary care doctor in 1-2 days. Patient is advised to return if any worsening condition or if any changes in status that are concerning. This report is dictated with [employer] commercial lines underwriter software which may occasionally lead to discrepancies related to use of this software. Status: improved Disposition: HOME, SELF-CARE Condition: Stable Scripts Lidocaine HCl 2% Viscous (Lidocaine HCl 2% Viscous) 100 Ml Solution 5 ML ORAL QID, #100 ML Prov: Christopher Spain MD 09/26/20 Referrals: SULLY ALEJANDRE M.D. (PCP) Patient Instructions: Medical Screening Exam Additional Instructions: Follow up with your doctor for referral to oral surgery. Return if any concerns. This may require removal Christopher Spain MD Oct 01, 2020 14:54
== END 2020-09-26 18:30 | disposition home or self-care (01) ==
LOC: EMR 18:25
DX: K13.0 Diseases of lips (principal); I10 Essential (primary) hypertension; E11.9 Type 2 diabetes mellitus without complications; G35 Multiple sclerosis; Z91.018 Allergy to other foods
CPT/HCPCS: 99282